=== PATIENT | female | born 2000 | race Caucasian/White ===

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

== ENCOUNTER 2025-07-15 02:17 | Emergency (ER) | payer MEDICARE, MEDICAID ==
[~2025-07-15] VITALS: Ht 165.1 cm; Wt 106.1 kg
[~2025-07-15 02:17] MED LIST: AMITRIPTYLINE10 MG PO; FOCALIN XR30 MG PO; INTUNIV3 MG PO; LATU60TA PO
[2025-07-15 02:37] LABS: BILIRUBIN Negative (Negative); BLOOD 3+ (Negative); CLARITY Clear (Clear); COLOR Yellow (Yellow); KETONE 1+ (Negative); LEUKO ESTERASE Trace (Negative); NITRITE Negative (Negative); PH 5.5 (4.5-8.0); SPECIFIC GRAVITY 1.025 (1.001-1.030); UROBILINOGEN 1.0 E.U./dl (0.0-1.0)
[2025-07-15 02:44] LABS: BACTERIA 1+; RBC TNTC rbc/hpf (0-2)
[2025-07-15 03:08] LABS: BASO # 0.1 10*3/uL (0.0-0.1); BASO % 0.4 % (0.0-1.0); EOS # 0.0 10*3/uL (0.0-0.4); EOS % 0.2 % (1.0-4.0); MEAN CELL VOLUME 81.9 fl (81.0-99.0); MEAN CORPUSCULAR HGB 26.7 pg (27.0-31.0); MEAN PLATELET VOLUME 10.4 fl (9.6-12.3); MONO # 0.8 10*3/uL (0.1-1.0); MONO % 6.6 % (3.0-9.0); NEUT # 9.1 10*3/uL (2.3-7.9); NEUT % 74.5 % (47.0-73.0); NUCLEATED RED BLOOD CELL 0.0 % (0.0-0.0); NUCLEATED RED BLOOD CELL 0.0 10*3/uL (0.0-0.0); PLATELET COUNT AUTOMATED 310 10*3/uL (130-400); RED CELL DISTRI WIDTH 13.7 % (0-14.5)
[2025-07-15 03:29] LABS: BUN 9 mg/dl (9-23)
[2025-07-15] MEDS ORDERED: MACROBID100 M1 PO (04:18)
[2025-07-15] MEDS ORDERED: Nitrofurantoin Monohydrate/N 100 MG CAP PO ONE (04:20)
== END 2025-07-15 04:09 | disposition home or self-care (01) ==
LOC: ED 02:17
PROVIDERS: Internal Medicine
DX: N39.0 Urinary tract infection, site not specified (principal); R11.2 Nausea with vomiting, unspecified; Z88.2 Allergy status to sulfonamides; Z79.899 Other long term (current) drug therapy